=== PATIENT | female | born 1945 | race Caucasian/White ===

== ENCOUNTER 2020-07-29 10:39 | Emergency (ER) | payer MEDICARE, BC ==
[~2020-07-29] VITALS: Ht 162.6 cm; Wt 73.6 kg
[2020-07-29 11:41] LABS: BASO # 0.1 (0.0-0.2); EOS # 0.1 (0.0-0.7); EOS % 1.9 % (0-4.0); GRAN # 3.3 (1.4-6.5); GRAN % 67.7 % (42.2-75.2); HEMOGLOBIN 12.2 g/dl (12.5-16.0); LYMPH % 21.3 % (20.0-51.0); MEAN CELL VOLUME 96 fl (80.0-100.0); MEAN CORPUSCULAR HEMOGLOBIN 32 pg (27.0-31.0); MEAN CORPUSCULAR HGB CONC 33 g/dl (33.0-37.0); MEAN PLATELET VOLUME 9.8 fl (7.4-10.4); MONO # 0.4 (0.1-0.6); MONO % 7.9 % (1.7-9.3); PLATELET COUNT 263 K/mm3 (130-400); RED BLOOD COUNT 3.86 M/mm3 (4.10-5.30); REDCELL DISTRIBUTION WIDTH-CV 12.5 % (11.5-14.5)
[2020-07-29 11:46] LABS: PROTHROMBIN TIME 10.9 SECONDS (9.7-12.8)
[2020-07-29 11:49] LABS: ALANINE AMINOTRANSFERASE 21 U/L (4-34); ALBUMIN 4.2 gm/dL (3.5-5.0); ALKALINE PHOSPHATASE 44 U/L (50-136); ANION GAP 9 mmol/L (7-16); AST,SGOT 30 U/L (15-37); BILIRUBIN,TOTAL 0.4 mg/dL (0.0-1.0); BLOOD UREA NITROGEN 7 mg/dL (7-17); CALCIUM 9.1 mg/dL (8.4-10.2); CARBON DIOXIDE 26 mmol/L (22-30); CHLORIDE 100 mmol/L (98-107); CREATININE, serum 0.42 (0.52-1.25); GLUCOSE 104 mg/dL (74-106); SODIUM 134 mmol/L (137-145); TOTAL PROTEIN 7.5 gm/dL (6.4-8.2)
[2020-07-29 12:06] LABS: TROPONIN-I < 0.012 ng/mL (0.000-0.035)
[2020-07-29 12:37] LABS: PH 7 (5-8); SQUAMOUS EPITHELIAL None Seen /hpf; URINE APPEARANCE Clear; URINE BACTERIA Rare /hpf; URINE BILIRUBIN Negative (NEGATIVE); URINE BLOOD Negative (NEGATIVE); URINE COLOR Straw; URINE GLUCOSE Negative (NEGATIVE); URINE KETONE Negative (NEGATIVE); URINE LEUKOCYTE ESTERASE Negative (NEGATIVE); URINE NITRATE Negative (NEGATIVE); URINE PROTEIN(semi-quant) Negative (NEGATIVE); URINE RBC 0-2 /hpf; URINE UROBILINOGEN Negative (NEGATIVE); URINE WBC 0-2 /hpf
[2020-07-29 13:00] VITALS: BP 113/62; PULSE 87; TEMP 98
[2020-07-29 13:10] LABS: COLLECTION METHOD CLEAN CATCH
== END 2020-07-29 13:29 | disposition home or self-care (01) ==
LOC: COL.ER 10:39
PROVIDERS: Nurse Practitioner Primary Care
DX: R42 Dizziness and giddiness (principal); R53.81 Other malaise; R20.0 Anesthesia of skin; Z88.0 Allergy status to penicillin; Z88.2 Allergy status to sulfonamides
CPT/HCPCS: J7030

== ENCOUNTER → 2021-09-14 | Outpatient (CLI) | payer MEDICARE, BC | LOC: COL.RAD 09-13 11:00 | DX: I65.21 Occlusion and stenosis of right carotid artery (principal); I65.22 Occlusion and stenosis of left carotid artery | CPT/HCPCS: Q9967 ==

== ENCOUNTER 2022-01-01 07:35 | Emergency (ER) | payer MEDICARE, BC ==
[~2022-01-01] VITALS: Ht 162.6 cm; Wt 79.5 kg
[2022-01-01 07:42] VITALS: TEMP 98.1
[2022-01-01 08:14] LABS: BASO % 0.7 % (0.0-2.0); EOS % 0.9 % (0.0-4.0); GRAN # 3.4 K/mm3 (1.4-6.5); GRAN % 74.9 % (42.2-75.2); HEMOGLOBIN 12.5 g/dl (12.5-16.0); LYMPH # 0.7 K/mm3 (1.2-3.4); LYMPH % 15.5 % (20.0-51.0); MEAN CELL VOLUME 94 fl (80.0-100.0); MEAN CORPUSCULAR HEMOGLOBIN 32 pg (27-31); MEAN CORPUSCULAR HGB CONC 34 g/dl (33.0-37.0); MEAN PLATELET VOLUME 8.8 fl (7.4-10.4); MONO # 0.4 K/mm3 (0.1-0.6); MONO % 7.8 % (1.7-9.3); PLATELET COUNT 279 K/mm3 (130-400); RED BLOOD COUNT 3.89 M/mm3 (4.10-5.30); REDCELL DISTRIBUTION WIDTH-CV 12.8 % (11.5-14.5)
[2022-01-01 08:21] LABS: INR 0.9 (0.8-3.0); PROTHROMBIN TIME 10.7 SECONDS (9.7-12.8)
[2022-01-01 08:33] LABS: ALBUMIN 4.1 gm/dL (3.4-4.8); BILIRUBIN,TOTAL 0.5 mg/dL (0.2-1.2); CALCIUM 9.4 mg/dL (8.4-10.2); CREATININE, serum 0.67 mg/dL (0.57-1.11); POTASSIUM 4.6 mmol/L (3.5-4.5); TOTAL PROTEIN 7.1 gm/dL (6.2-8.1)
[2022-01-01 08:42] LABS: HEMATOCRIT 36.6 % (37.0-47.0)
[2022-01-01 09:13] VITALS: BP 133/74; PULSE 88
== END 2022-01-01 09:13 | disposition home or self-care (01) ==
LOC: COL.ER 07:35
PROVIDERS: Personal Emergency Response Attendant
DX: G57.92 Unspecified mononeuropathy of left lower limb (principal); Z79.82 Long term (current) use of aspirin
CPT/HCPCS: Q9967